=== PATIENT | male | born 2000 | race Hispanic/Latino ===

== ENCOUNTER 2023-02-06 13:07 | Emergency (ER) | payer OTHER ==
[~2023-02-06] VITALS: Ht 170.2 cm; Wt 84.1 kg
[2023-02-06 13:08] VITALS: BP 127/68; TEMP 98.4; O2SAT 98
[2023-02-06] MEDS ORDERED: predniSONE 20 MG TAB PO ONE (15:20)
[2023-02-06 15:50] LABS: BASO # 0.1 10^3/uL (0.0-0.2); BASO % 0.6 % (0.0-1.0); EOS # 0.1 10^3/uL (0.0-0.5); EOS % 0.9 % (0.0-3.0); HEMATOCRIT 42.5 % (42.0-52.0); HEMOGLOBIN 15.3 g/dl (13.5-17.5); LYMPH # 2.6 10^3/uL (1.5-5.0); LYMPH % 20.5 % (24.0-44.0); MEAN CORPUSCULAR HEMOGLOBIN 29.8 pg (27.0-33.0); MEAN CORPUSCULAR VOLUME 82.7 fl (80.0-96.0); MONO # 0.7 10^3/uL (0.0-0.8); MONO % 5.2 % (2.0-8.0); NEUTROPHILS % 72.2 % (36.0-66.0); PLATELET COUNT, AUTOMATED 375 10^3/uL (150-450); RED BLOOD COUNT 5.14 10^6/uL (4.30-6.10); WHITE BLOOD COUNT 12.4 10^3/uL (4.0-10.0)
[2023-02-06] MEDS ORDERED: ALBU6.7H6 INH (16:04)
== END 2023-02-06 16:15 | disposition home or self-care (01) ==
LOC: M ED 13:07
DX: R06.02 Shortness of breath (principal); R07.1 Chest pain on breathing; R42 Dizziness and giddiness
CPT/HCPCS: 36415; 71046; 80047; 85025; 93005; 99284; J7512